=== PATIENT | female | born 1955 | race Caucasian/White ===

== ENCOUNTER 2016-12-26 00:26 | Emergency (ER) | payer OTHER, BC ==
[~2016-12-26] VITALS: Ht 157.5 cm; Wt 71.9 kg
[2016-12-26 00:36] VITALS: TEMP 36.5; Ht 157.5 cm; Wt 71.9 kg
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
[2016-12-26] MEDS ORDERED: CYM/30 PO (01:13)
[2016-12-26] MEDS ORDERED: QUET1TAB34 PO (01:14)
[2016-12-26 06:14] VITALS: BP 127/83; PULSE 72; O2SAT 95
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
== END 2016-12-26 06:14 | disposition home or self-care (01) ==
LOC: C.EDA 00:30
DX: S60.222A Contusion of left hand, initial encounter (principal); V87.7XXA Person injured in collision between other specified motor vehicles (traffic), initial encounter; Y92.411 Interstate highway as the place of occurrence of the external cause; F32.9 Major depressive disorder, single episode, unspecified; Z98.890 Other specified postprocedural states; Z79.899 Other long term (current) drug therapy; Z88.5 Allergy status to narcotic agent